=== PATIENT | male | born 1960 | race Caucasian/White ===

== ENCOUNTER 2017-03-15 10:09 | Day surgery (SDC) | payer MEDICAID ==
--- NOTE | 2017-03-10 13:53 | EKG REPORT ---
SEVERITY:- NORMAL ECG - SINUS RHYTHM : Confirmed by: Morgan Juarez MD 10-Mar-2017 13:52:49
[~2017-03-15 10:09] MED LIST: LIDOCAINE 0.5% INJ-PF (5 MG/ML) 50 ML SDV INJ PRN; RINGERS SOLUTION,LACTATED 1,000 ML IV PRN
[2017-03-15] MEDS ORDERED: FENTANYL CITRATE INJ/PF 100 MCG/2 ML AMPUL ONE (12:04)
[2017-03-15] MEDS ORDERED: PROPOFOL INJ 200 MG/20 ML VIAL IV ONE (12:05)
[2017-03-15] MEDS ORDERED: EPHEDRINE SULFATE INJ 50 MG/1 ML AMPULE ONE (12:05)
[2017-03-15] MEDS ORDERED: MIDAZOLAM 2 MG/2 ML INJ ONE (12:05)
[2017-03-15] MEDS ORDERED: IBUPROFEN INJ 800 MG/8 ML VIAL IV ONE (12:05)
[2017-03-15] MEDS ORDERED: HYDROMORPHONE HCL INJ/PF 2 MG/ML AMPULE ONE (12:05)
[2017-03-15] MEDS ORDERED: DEXAMETHASONE SOD PHOSPHATE INJ 4 MG/1 ML VIAL ONE (12:06)
[2017-03-15] MEDS ORDERED: ONDANSETRON HCL INJ/PF 4 MG/2 ML SDV ONE (12:06)
[2017-03-15] MEDS ORDERED: LIDOCAINE 2%/EPINEPHRINE INJ 1.7 ML CARTRIDGE ONE (12:07)
[2017-03-15] MEDS ORDERED: LIDOCAINE 2% INJ (20 MG/ML) 20 ML MDV ONE (12:57)
[2017-03-15] MEDS ORDERED: FENTANYL CITRATE INJ/PF 100 MCG/2 ML AMPUL IV PRN ×3 (13:02)
[2017-03-15] MEDS ORDERED: MORPHINE SULFATE 10 MG/ML INJ IV PRN (13:02)
[2017-03-15] MEDS ORDERED: PROMETHAZINE HCL INJ 25 MG/1 ML VIAL IV PRN ×2 (13:02)
[2017-03-15] MEDS ORDERED: DIPHENHYDRAMINE HCL 50 MG/ML VIAL IV PRN (13:02)
[2017-03-15] MEDS ORDERED: MEPERIDINE HCL/PF INJ 25 MG/1 ML DISP.SYRIN IV PRN (13:02)
[2017-03-15] MEDS ORDERED: OXYCODONE-ACETAMINOPHEN 5-325 MG TABLET PO PRN ×3 (13:02→14:00)
[2017-03-15] MEDS ORDERED: ONDANSETRON HCL INJ/PF 4 MG/2 ML SDV IV PRN (13:02)
--- NOTE | 2017-03-15 14:34 | Operative Report ---
Operative Report DATE OF SURGERY: 03/15/17 PREOPERATIVE DIAGNOSIS: Dental caries and periodontitis POSTOPERATIVE DIAGNOSIS: Same OPERATION: Surgical removal of teeth numbers 21, 22, 23, 24, 26 and 27 SURGEON: MIKE REYNAGA ANESTHESIA: GA TISSUE REMOVED OR ALTERED: Teeth which were discarded COMPLICATIONS: None ESTIMATED BLOOD LOSS: 10 mL INTRAOPERATIVE FINDINGS: Severely decayed and nonrestorable teeth with moderate to severe attachment loss PROCEDURE: The patient was brought into operating room #3 and placed on the operating room table in supine position. General anesthesia was induced via a peripheral IV and continued utilizing endotracheal intubation. The patient was prepped and draped in the usual fashion for an intraoral procedure. A total of 1 carpule of 2% lidocaine with 1:100,000 epinephrine and 3 mL of 2% lidocaine without epinephrine were delivered to the planned surgical sites via both infiltration and nerve block. The oral cavity and oropharynx was suctioned and a moistened oropharyngeal throat pack was placed. Full-thickness mucoperiosteal flaps were then developed. Ostectomy was completed as needed. The teeth were delivered using elevators and forceps. The sockets were curetted free of any debris and irrigated with normal saline solution. The flaps were reapproximated and sutured using 4-0 chromic gut suture. The nerves were not seen. A bite block was used throughout the procedure. The mandible was intact postoperatively. The oral cavity was irrigated and suctioned and found to be free of debris. The throat pack was removed. The oropharynx was suctioned. Gauze packs were placed to aid in continued hemostasis. The patient was awakened from general anesthesia, extubated in the operating room and taken to recovery room in spontaneous breathing fashion.
[2017-03-15 15:08] VITALS: BP 119/89
[2017-03-15] MEDS ORDERED: SUCCINYLCHOLINE CHLORIDE INJ 200 MG/10 ML VIAL ONE (15:34)
== END 2017-03-15 15:18 | disposition home or self-care (01) ==
LOC: OROUT 10:09
PROVIDERS: ATTEND Dentist Oral and Maxillofacial Surgery
PROC: 0CDXXZ1 Extraction of Lower Tooth, Multiple, External Approach (ICD-10-PCS; principal; 2017-03-15 12:00)
DX: K02.9 Dental caries, unspecified (principal); K05.30 Chronic periodontitis, unspecified; Z88.1 Allergy status to other antibiotic agents; Z79.899 Other long term (current) drug therapy; Z86.73 Personal history of transient ischemic attack (TIA), and cerebral infarction without residual deficits
CPT/HCPCS: 41899; 93005; 93010; J2250; J3490 ×2; J1100; J3010; J0330; J2405; J2704; J1741; 170; J1170